=== PATIENT | male | born 1995 | race Two or more races ===

== ENCOUNTER 2018-08-02 03:20 | Emergency (ER) | payer SELFPAY ==
[~2018-08-02] VITALS: Ht 188 cm; Wt 81.6 kg
[2018-08-02 03:31] VITALS: BP 125/75
[2018-08-02] MEDS ORDERED: LORAZEPAM 1 MG TABLET PO ONE (04:00)
[2018-08-02] MEDS ORDERED: LORAZEPAM 1 MG TABLET ONE (04:15)
== END 2018-08-02 05:13 | disposition home or self-care (01) ==
LOC: ER 03:27
DX: F41.9 Anxiety disorder, unspecified (principal); F17.200 Nicotine dependence, unspecified, uncomplicated
CPT/HCPCS: 99284; A4606